=== PATIENT | male | born 1990 | race Caucasian/White ===

== ENCOUNTER 2024-12-29 14:44 | Inpatient (IN) | payer MEDICAID, OTHER, SELFPAY ==
--- OUTSIDE RECORDS SUMMARY | 2024-12-29 15:12 | XMS_ITS | Encounter Summary ---
Author Organization [facility] Address [address] [place] [address] Phone Care Team Providers Care Embroiderer Hand Name Role Phone Required, No Pcp/Pcp Not Primary Care Provider U navailable Encounter Details Date Type Department Care Team (Latest Contact Info) Description 12/26/2024 Travel Social History Tobacco Use Types Packs/Day Years Used Date Smoking Tobacco: Never Smokeless Tobacco: Never Sex and Gender Information Value Date Recorded Sex Assigned at Not on file Legal Sex Male 5:30 PM EDT Gender Identity Not on file Sexual Orientation Not on file documented as of this encounter Functional Status * Calculated C-SSRS Risk Score (Lifetime/Recent) Answer Date of Assessment Author High Risk 12/26/2024 11:33 PM EDT Latonya Ray MSW * Suicidal Ideation Question Answer Date of Assessment Author 1. Wish to be (Lifetime) Yes 12/26/2024 11:33 PM EDT Latonya Ray SHACTOR HELPER 2. Non-Specific Active Suici chu Thoughts (Lifetime) Yes 12/26/2024 11:33 PM EDT Latonya Ray, MS W 3. Active Suicidal Ideation with any Methods (Not Plan) Without Intent to Act (Lifetime) No 12/26/2024 11:33 PM EDT Latonya Ray, MS W 4. Active Suicidal Ideation with Some Intent to Act, Without Specific Plan (Lifetime) Yes 12/26/2024 11:33 PM EDT Latonya Ray, MS W 5. Active Suicidal Ideation with Specific Plan and Intent (Lifetime) No 12/26/2024 11:33 PM EDT Latonya Ray MSW 1. Wish to be (Past 1 Month) Yes 11:33 PM EDT Latonya Ray, SHACTOR HELPER 2. Non-Specific Active Suici chu Thoughts (Past 1 Month) Yes 12/26/2024 11:33 PM EDT Latonya Ray , SHACTOR HELPER 3. Active Suicidal Ideation with any Methods (Not Plan) Without Intent to Act (Past 1 Month) No 12/26/2024 11:33 PM EDT Latonya Ray, MS W 4. Active Suicidal Ideation with Some Intent to Act, Without Specific Plan (Past 1 Month) Yes 12/26/2024 11:33 PM EDT Latonya Ray, MS W 5. Active Suicidal Ideation with Specific Plan and Intent (Past 1 Month) No 12/26/2024 11:33 PM EDT Latonya Ray, MS W * Intensity of Ideation Question Answer Date of Assessment Author Most Severe Ideation Rating (Lifetime) 2 12/26/2024 11:33 PM EDT Latonya Ray, MS W Frequency (Lifetime) 2 12/26/2024 11:33 PM EDT Latonya Ray, SHACTOR HELPER Duration (Lifetime) 2 12/26/2024 11:33 PM E DT Latonya Ray, SHACTOR HELPER Controllability (Lifetime) 3 12/26/2024 11: 33 PM EDT Latonya Ray, SHACTOR HELPER Reasons for Ideation (Lifetime) 4 11:33 PM EDT Latonya Ray, SHACTOR HELPER Most Severe Ideation Rating (Past 1 Month) 2 12/26/2024 11:33 PM EDT Latonya Ray, MS W Frequency (Past 1 Month) 2 12/26/2024 11:33 PM EDT Latonya Ray, SHACTOR HELPER Duration (Past 1 Month) 2 12/26/2024 11:33 PM EDT Latonya Ray, SHACTOR HELPER Controllability (Past 1 Month) 3 12/26/2024 11:33 PM EDT Latonya Ray, SHACTOR HELPER Deterrents (Past 1 Month) 2 12/26/2024 11:3 3 PM EDT Latonya Ray, SHACTOR HELPER * Suicidal Behavior Question Answer Date of Assessment Author Actual Attempt (Lifetime) No 12/26/2024 11:3 3 PM EDT CoryLatonya, SHACTOR HELPER Has subject engaged in non-s uicidal self-injurious behavior? (Lifetime) No 12/26/2024 11:33 PM EDT Latonya Ray MSW Interrupted Attempts (Lifetime) No 11:33 PM EDT Latonya Ray MSW Aborted or Self-Interrupted Attempt (Lifetime) No 12/26/2024 11:33 PM EDT Latonya Ray MS W Preparatory Acts or Behavior (Lifetime) No 12/26/2024 11:33 PM EDT Latonya Ray MS W documented as of this encounter Plan of Treatment Not on file documented as of this encounter Visit Diagnoses Not on filedocumented in this encounter Additional Health Concerns Infection Onset Date Last Indicated Resolved Time Covid Possible 12/26/2024 12/26/2024 12/26/2024 11 :01 PM EDT documented as of this encounter Care Teams Embroiderer Hand Relationship Specialty Start Date End Date Required, No Pcp/Pcp Not [address] [place] [address] PCP - General Golf Course Designer 12/26/24 documented as of this encounter
--- OUTSIDE RECORDS SUMMARY | 2024-12-29 15:12 | XMS_ITS | Clinical Summary ---
Author Organization [facility] Address [address] [facility] [address] [place] [address] Care Team Providers Care Basting Marker Name Role Phone Unavailable Primary Care Provider Unavailabl e Social History Tobacco Use Types Packs/Day Years Used Date Smoking Tobacco: Never Assessed Sex and Gender Information Value Date Recorded Sex Assigned at Not on file Legal Sex Male 12:55 PM EDT Gender Identity Not on file Sexual Orientation Not on file Plan of Treatment Health Maintenance Due Date Last Done Comments Depression Screening 1992 HIV Screening 1992 SDOH Screening 1992 Disability Screening 1992 Alcohol/Substance Use Screening 2004 Tobacco Screening 2004 Family Planning (PISQ) 10/28/2007 Hepatitis C Screening 2010 DTaP/Tdap/Td Vaccines (1 - Tdap) 10/28/2011 Hepatitis B Vaccines (1 of 3 - 19+ 3-dose series) 10/28/2011 COVID-19 Vaccine ( - 2023-2 5 season) 2024 Influenza Vaccine (Season Ended) 2025 Zoster Vaccines (1 of 2) 2042 RSV Patients and Pa tients Aged 60 years or older (1 - 1-dose 75+ series) 10/28/2067 HIB Vaccines Aged Out No longer eligi ble based on patient's age to complete this topic HPV Vaccines Aged Out No longer eligi ble based on patient's age to complete this topic Hepatitis A Vaccines Aged Out No long er eligible based on patient's age to complete this topic IPV Vaccines Aged Out No longer eligi ble based on patient's age to complete this topic Meningococcal B Vaccine Aged Out No l onger eligible based on patient's age to complete this topic Meningococcal Vaccine Aged Out No sean saran eligible based on patient's age to complete this topic Pneumococcal Vaccine: Pediat rics (0 to 5 Years) and At-Risk Patients (6 to 49) Years Aged Out No longer eligible b ased on patient's age to complete this topic RSV under 20 months Aged Out No longe r eligible based on patient's age to complete this topic Rotavirus Vaccines Aged Out No longer eligible based on patient's age to complete this topic Insurance [employer]
[2024-12-29 16:28] VITALS: BP 113/65; PULSE 62; RESP 18; TEMP 37.1; O2SAT 97
--- NOTE | 2024-12-29 17:45 | PC.NURSE ---
[address] was admitted to [facility] at 14:55 from [place].? Pt signed a CV and 3-day on arrival for treatment of mood disorder with SI and SIB.? Pt has a history of head banging to the point of unconsciousness. Prior to admission to the ED pt was reported to be banging his head against a wall with the intent of killing himself. Pt is alert and oriented x4 and is cooperative with staff.? Mood is anxious and depressed, affect is anxious.? Pt denies AVH and tactile hallucinations. Pt does make a note of ?seeing diabolical and devilish things in sabian[place] in the sculptures and art in the stained glass windows as a kid that was traumatic and I still see flashes of these images to this day that haunt me.?? Pt does not appear internally preoccupied? or responding to internal stimuli. Pt denies paranoia, suspiciousness, and delusions.? Pt does admit to being preoccupied with the images from sabianist he saw as a kid. Thought process is disorganized and not linear. Pt denied ideation and any plans to harm self or others.? Pt states having a full appetite and no changes in weight.? Pt reports sleeplessness, getting only ?a couple of hours a night.?? Pt displays appropriate focus during conversations and tasks.? Pt denies substance usage of any kind with the tox screen coming back negative for everything tested.? Pt states having no existing medical issues. Pt mentions a history of depression and a past suicide attempt when he was younger, pt jumped from a second floor with intent. ? Pt is on 15min safety checks.?
[2024-12-29 20:00] VITALS: BP 110/59; PULSE 65; RESP 16; TEMP 36.8; O2SAT 98
[2024-12-30 07:10] VITALS: BP 106/59; PULSE 50; RESP 12; TEMP 36.5; O2SAT 97
[2024-12-30 08:09] LABS: Alanine Aminotransferase 13 U/L (0-40); Albumin Level 4.2 g/dL (3.5-5.0); Alkaline Phosphatase 55 U/L (39-117); Anion Gap 7 (12-20); Aspartate Amino Transferase 20 U/L (5-37); Blood Urea Nitrogen 16 mg/dL (9-16); Calcium 9.1 mg/dL (8.4-10.2); Carbon Dioxide 29 mmol/L (22-29); Chloride 106 mmol/L (96-108); Cholesterol 146 mg/dL (<200); Estimated Glomerular Filt Rate > 60; HDL Cholesterol 36 mg/dL (>40); Potassium 4.2 mmol/L (3.3-5.1); Sodium 138 mmol/L (135-145); Total Protein 7.3 g/dL (6.5-8.0); Triglycerides 117 mg/dL (<150)
[2024-12-30 08:12] LABS: Hemoglobin A1C 125.8671 umol/L; Total Hemoglobin (HGBA1C) 3773.6132 umol/L
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
[2024-12-30 20:00] VITALS: BP 101/58; PULSE 68; RESP 14; TEMP 36.2; O2SAT 98
[2024-12-31 07:55] VITALS: BP 99/59; PULSE 52; TEMP 36.2; O2SAT 99
--- NOTE | 2024-12-31 15:59 | HO.PSYCHPN ---
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 reports hearing everyone talk about the devil and listening to devil music everywhere he goes. states that's a reason he left his last job, that everyone was all about the devil there. educated re head trauma and impulsivity/lability, agreed to take medications to combat the same. per staff, 3-day up 01/04. wants D/C. taking meds. not attending groups. no SI/HI. worried about job and money. Mental Status Exam Mental Status Exam Narrative: adequately dressed and groomed. cooperative. no PMA/PMR. speech nml rate, decr amount, nml loudness, nml latency. thoughts linear and logical. affect constricted, normo-intense, non-labile. mood depressed. no SI/HI/AVH expressed. Diagnostics Vital Signs (24Hr): Vital Signs - 24 hr 12/30/24 20:00 12/31/24 07:55 Temperature 97.2 F 97.2 F Pulse Rate 68 52 Respiratory Rate 14 Blood Pressure 101/58 L 99/59 L Pulse Oximetry 98 99 Oxygen Delivery Method Room Air Room Air Labs 12/30/24 07:39 Labs: Laboratory Results - last 48 hr 12/30/24 07:39 Sodium 138 Potassium 4.2 Chloride 106 Carbon Dioxide 29 Anion Gap 7 L BUN 16 Creatinine 1.12 Estim Creat Clear Calc TNP Estimated GFR > 60 Random Glucose 89 Estimat Average Glucose 103 Hemoglobin A1c % 5.2 Calcium 9.1 Total Bilirubin 0.6 AST 20 ALT 13 Alkaline Phosphatase 55 Total Protein 7.3 Albumin 4.2 Triglycerides 117 Cholesterol 146 LDL Cholesterol, Calc 87 HDL Cholesterol 36 L Medications Medications Current Medications Acetaminophen (Acetaminophen 325 Mg Tablet) 650 mg PO Q6H PRN PRN Reason: Headache/Pain, Scale 1-10 Al Hydroxide/Mg Hydroxide (Magnesium Hydrox/Alum Hydrox 30 Ml Oral.Susp) 30 ml PO Q6H PRN PRN Reason: Heartburn/Nausea Divalproex Sodium (Divalproex Sodium Er 500 Mg Tab.Er.24h) 1,000 mg PO BEDTIME [facility] Hydroxyzine HCl (Hydroxyzine Hcl 25 Mg Tablet) 25 mg PO Q6H PRN PRN Reason: mild anxiety Last Admin: 12/30/24 18:26 Dose: 25 mg Magnesium Hydroxide (Milk Of Magnesia 30 Ml Oral.Susp) 30 ml PO DAILY PRN PRN Reason: Constipation Mirtazapine (Mirtazapine 15 Mg Tablet) 15 mg PO BEDTIME [facility] Last Admin: 12/30/24 20:33 Dose: 15 mg Mirtazapine (Mirtazapine 15 Mg Tablet) 15 mg PO BEDTIME PRN PRN Reason: insomnia Nicotine Polacrilex (Nicotine Polacrilex 2 Mg Gum) 4 mg BUCCAL Q2H PRN PRN Reason: Nicotine Cravings Risperidone (Risperidone 1 Mg Tablet) 1 mg PO Q4H PRN PRN Reason: agitation Risperidone (Risperidone 1 Mg Tablet) 1 mg PO BEDTIME [facility] Allergies Allergies Allergy/AdvReac Type Severity Reaction Status Date / Time No Known Allergies Allergy Verified 12/29/24 14:52 Assessment & Plan Assessment & Plan (1) Depression: Status: Acute Code(s): F32.A - Depression, unspecified Plan Patient is a 34-year-old male with history of MDD and TBI who presented to ER due to suicidal ideation secondary to increased depression. Plan: CV 15 minute safety checks Start: Remeron 15mg PO bedtime Obtain collateral Referral to outpatient psychiatric providers Encourage groups Discharge planning 12/31: start risperidone 1 QHS and depakote ER 1000 QHS for psychosis, reactivity, lability, impulsivity s/p TBI. Reason for continued inpatient stay Substantial Risk for: harm to self and inability to function Time Spent With Patient Time: Total time managing care of this patient today __35__ minutes.
[2024-12-31 19:52] VITALS: BP 111/57; PULSE 68; RESP 16; TEMP 36.4; O2SAT 97
[2025-01-01 08:00] VITALS: BP 111/57; PULSE 68; RESP 18; TEMP 36.4; O2SAT 99
--- NOTE | 2025-01-01 14:23 | P.PNPSI_ITS ---
Subjective Subjective Date of Service: 01/01/25 Reason For Visit: SI Interim History: calm, cooperative, pleasant. seen with cinetechnician. states he slept well last night and had no problems with medications. per staff, denied Sx on eves. cheerful. slept 8+ hours. anxious to discharge. Mental Status Exam Mental Status Exam Narrative: adequately dressed and groomed. cooperative. no PMA/PMR. speech nml rate, decr amount, nml loudness, nml latency. thoughts linear and logical. affect constricted, normo-intense, non-labile. mood depressed. no SI/HI/AVH expressed. Diagnostics Vital Signs (24Hr): Vital Signs - 24 hr 12/31/24 19:52 01/01/25 08:00 Temperature 97.6 F 97.6 F Pulse Rate 68 68 Respiratory Rate 16 18 Blood Pressure 111/57 L 111/57 L Pulse Oximetry 97 99 Oxygen Delivery Method Room Air Room Air Labs 12/30/24 07:39 Medications Medications Current Medications Acetaminophen (Acetaminophen 325 Mg Tablet) 650 mg PO Q6H PRN PRN Reason: Headache/Pain, Scale 1-10 Al Hydroxide/Mg Hydroxide (Magnesium Hydrox/Alum Hydrox 30 Ml Oral.Susp) 30 ml PO Q6H PRN PRN Reason: Heartburn/Nausea Divalproex Sodium (Divalproex Sodium Er 500 Mg Tab.Er.24h) 1,000 mg PO BEDTIME [facility] Last Admin: 12/31/24 20:52 Dose: 1,000 mg Hydroxyzine HCl (Hydroxyzine Hcl 25 Mg Tablet) 25 mg PO Q6H PRN PRN Reason: mild anxiety Last Admin: 12/30/24 18:26 Dose: 25 mg Magnesium Hydroxide (Milk Of Magnesia 30 Ml Oral.Susp) 30 ml PO DAILY PRN PRN Reason: Constipation Mirtazapine (Mirtazapine 15 Mg Tablet) 15 mg PO BEDTIME [facility] Last Admin: 12/31/24 20:52 Dose: 15 mg Mirtazapine (Mirtazapine 15 Mg Tablet) 15 mg PO BEDTIME PRN PRN Reason: insomnia Nicotine Polacrilex (Nicotine Polacrilex 2 Mg Gum) 4 mg BUCCAL Q2H PRN PRN Reason: Nicotine Cravings Risperidone (Risperidone 1 Mg Tablet) 1 mg PO Q4H PRN PRN Reason: agitation Risperidone (Risperidone 1 Mg Tablet) 1 mg PO BEDTIME [facility] Last Admin: 12/31/24 20:52 Dose: 1 mg Allergies Allergies Allergy/AdvReac Type Severity Reaction Status Date / Time No Known Allergies Allergy Verified 12/29/24 14:52 Assessment & Plan Assessment & Plan (1) Depression: Status: Acute Code(s): F32.A - Depression, unspecified Plan Patient is a 34-year-old male with history of MDD and TBI who presented to ER due to suicidal ideation secondary to increased depression. Plan: CV 15 minute safety checks Start: Remeron 15mg PO bedtime Obtain collateral Referral to outpatient psychiatric providers Encourage groups Discharge planning 12/31: start risperidone 1 QHS and depakote ER 1000 QHS for psychosis, reactivity, lability, impulsivity s/p TBI. 01/01: slept well, tolerating regimen. continue current mgmt. Reason for continued inpatient stay Substantial Risk for: harm to self and inability to function Time Spent With Patient Time: Total time managing care of this patient today ____ minutes.
[2025-01-01 20:13] VITALS: BP 121/56; PULSE 77; RESP 16; TEMP 36.6; O2SAT 97
[2025-01-02 08:00] VITALS: BP 110/56; PULSE 60; RESP 16; TEMP 35.9; O2SAT 98
--- NOTE | 2025-01-02 14:48 | P.PNPSI_ITS ---
Subjective Subjective Date of Service: 01/02/25 Reason For Visit: SI Interim History: feeling well. reports less preoccupation with devilry. erveything is fine. sleeping well. mood better, more relaxed. per staff, 3-day up 01/04. eating. no head banging. isolative. feels calm, no issues. Mental Status Exam Mental Status Exam Narrative: adequately dressed and groomed. cooperative. no PMA/PMR. speech nml rate, decr amount, nml loudness, nml latency. thoughts linear and logical. affect fleible, normo-intense, non-labile. mood better, more relaxed. no SI/HI/AVH expressed. Diagnostics Vital Signs (24Hr): Vital Signs - 24 hr 01/01/25 20:13 01/02/25 08:00 Temperature 97.9 F 96.6 F L Pulse Rate 77 60 Respiratory Rate 16 16 Blood Pressure 121/56 L 110/56 L Pulse Oximetry 97 98 Oxygen Delivery Method Room Air Room Air Labs 12/30/24 07:39 Medications Medications Current Medications Acetaminophen (Acetaminophen 325 Mg Tablet) 650 mg PO Q6H PRN PRN Reason: Headache/Pain, Scale 1-10 Al Hydroxide/Mg Hydroxide (Magnesium Hydrox/Alum Hydrox 30 Ml Oral.Susp) 30 ml PO Q6H PRN PRN Reason: Heartburn/Nausea Divalproex Sodium (Divalproex Sodium Er 500 Mg Tab.Er.24h) 1,000 mg PO BEDTIME [facility] Last Admin: 01/01/25 20:29 Dose: 1,000 mg Hydroxyzine HCl (Hydroxyzine Hcl 25 Mg Tablet) 25 mg PO Q6H PRN PRN Reason: mild anxiety Last Admin: 12/30/24 18:26 Dose: 25 mg Magnesium Hydroxide (Milk Of Magnesia 30 Ml Oral.Susp) 30 ml PO DAILY PRN PRN Reason: Constipation Mirtazapine (Mirtazapine 15 Mg Tablet) 15 mg PO BEDTIME [facility] Last Admin: 01/01/25 20:29 Dose: 15 mg Mirtazapine (Mirtazapine 15 Mg Tablet) 15 mg PO BEDTIME PRN PRN Reason: insomnia Nicotine Polacrilex (Nicotine Polacrilex 2 Mg Gum) 4 mg BUCCAL Q2H PRN PRN Reason: Nicotine Cravings Risperidone (Risperidone 1 Mg Tablet) 1 mg PO Q4H PRN PRN Reason: agitation Risperidone (Risperidone 1 Mg Tablet) 1 mg PO BEDTIME [facility] Last Admin: 01/01/25 20:30 Dose: 1 mg Allergies Allergies Allergy/AdvReac Type Severity Reaction Status Date / Time No Known Allergies Allergy Verified 12/29/24 14:52 Assessment & Plan Assessment & Plan (1) Depression: Status: Acute Code(s): F32.A - Depression, unspecified Plan Patient is a 34-year-old male with history of MDD and TBI who presented to ER due to suicidal ideation secondary to increased depression. Plan: CV 15 minute safety checks Start: Remeron 15mg PO bedtime Obtain collateral Referral to outpatient psychiatric providers Encourage groups Discharge planning 12/31: start risperidone 1 QHS and depakote ER 1000 QHS for psychosis, reactivity, lability, impulsivity s/p TBI. 01/01: slept well, tolerating regimen. continue current mgmt. 01/02: feeling improved, hoping for discharge soon. Reason for continued inpatient stay Substantial Risk for: inability to function Time Spent With Patient Time: Total time managing care of this patient today ____ minutes.
[2025-01-02 20:00] VITALS: BP 104/57; PULSE 67; RESP 16; TEMP 36.3; O2SAT 98
[2025-01-03 07:50] VITALS: BP 100/55; PULSE 60; RESP 20; O2SAT 20
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
[2025-01-03 10:34] LABS: Alanine Aminotransferase 24 U/L (0-40); Albumin Level 4.3 g/dL (3.5-5.0); Alkaline Phosphatase 65 U/L (39-117); Aspartate Amino Transferase 23 U/L (5-37); Total Protein 7.5 g/dL (6.5-8.0)
[2025-01-03 10:39] LABS: Ammonia 27 umol/L (13-55)
== END 2025-01-03 11:21 | disposition home or self-care (01) | DRG 754 ==
PROVIDERS: Admitting Provider Psychiatry & Neurology Psychiatry; Responsible Provider Registered Nurse; Visit Provider Psychiatry & Neurology Psychiatry
DX: F32.A Depression, unspecified (principal); R45.851 Suicidal ideations; Z79.899 Other long term (current) drug therapy
CPT/HCPCS: 36415; 80053; 80061; 80076; 80164; 82140; 83036

== ENCOUNTER → 2024-12-29 14:44 | Outpatient (BNV) | payer MEDICAID, SELFPAY | PROVIDERS: Admitting Provider Psychiatry & Neurology Psychiatry; Responsible Provider Registered Nurse; Visit Provider Nurse Practitioner Family | DX: F32.A Depression, unspecified (principal) | CPT/HCPCS: 99221 ==

== ENCOUNTER → 2024-12-29 14:44 | Outpatient (BNV) | payer MEDICAID, SELFPAY | PROVIDERS: Admitting Provider Psychiatry & Neurology Psychiatry; Responsible Provider Registered Nurse; Visit Provider Psychiatry & Neurology Psychiatry | DX: F32.2 Major depressive disorder, single episode, severe without psychotic features (principal) | CPT/HCPCS: 90792; 99231; 99232 ==